=== PATIENT | female | born 1980 | race Caucasian/White ===

== ENCOUNTER → 2018-05-29 | Outpatient (CLI) | payer BC, OTHER ==
[~2018-05-29] MED LIST: GADAVIST IV PRN
--- NOTE | 2018-05-29 11:33 | DIAGNOSTIC IMAGING REPORT ---
MRI OF THE LEFT HAND WITH AND WITHOUT CONTRAST CLINICAL HISTORY: Persistent left hand/thumb pain. COMPARISON STUDY: Left thumb radiographs May 22, 2018. TECHNIQUE: Utilizing a 1.5 Kavita magnet and dedicated coil, multiplanar, multi echo imaging of the left hand was performed pre and postcontrast administration. Injection of 5.7 cc of Gadavist IV was uneventful. FINDINGS: Alignment of the left hand is anatomic. A marker was placed on the skin at site of maximal pain which overlies the palmar aspect of the interspace located between the first and second metacarpals. No mass, fluid collection or other abnormalities identified to correspond to the site of maximal pain. The flexor and extensor tendons are intact. No marrow edema or marrow replacement is present. No abnormal enhancement is identified within the left hand. Intrinsic ligaments of the left wrist and hand appear intact. Apparent enhancement within the left thumb on postcontrast images is due to failure of fat saturation. IMPRESSION: Unremarkable MRI of the left hand. No mass, fluid collection or post traumatic findings identified. Electronically signed by: Nael Velazco M.D. 05/29/2018 11:32 AM Dictated Date/Time: 05/29/2018 11:19 AM
== END | disposition home or self-care (01) ==
LOC: C.MRIBC 09:43
PROVIDERS: ATTEND Physical Medicine & Rehabilitation Sports Medicine
DX: S66.919A Strain of unspecified muscle, fascia and tendon at wrist and hand level, unspecified hand, initial encounter (principal); X58.XXXA Exposure to other specified factors, initial encounter